=== PATIENT | female | born 1980 | race Caucasian/White ===

== ENCOUNTER 2022-01-10 18:46 | Emergency (ER) | payer OTHER, SELFPAY ==
--- NOTE | ~2022-01-10 | XR_ITS ---
EXAMINATION: XR chest 1V portable Exam Date/Time: 01/10/2022 19:25 CDT HISTORY: Overdose SOB Comparison: None available. RESULT: Lines, tubes, and devices: None. Lungs and pleura: Hyperexpansion. Subsegmental right lower lobe opacity discrete horizontal margin, which may represent diaphragmatic eventration chronic pleural scarring. Cardiomediastinal silhouette: Unremarkable. Other: No acute osseous or upper abdominal finding. 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 Formal PA and lateral views the chest be helpful for better differentiation. Emphysematous change. Reviewed, dictated and finalized at location K. 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 Formal PA and lateral views the chest be helpful for better differentiation. E mphysematous change.
[2022-01-10 18:54] VITALS: BP 93/59; PULSE 91; RESP 16; O2SAT 96
[2022-01-10 19:13] VITALS: RESP 18
[2022-01-10 19:20] VITALS: PULSE 91
[2022-01-10 19:21] VITALS: BP 117/72; PULSE 84; RESP 12; O2SAT 100
--- NOTE | 2022-01-10 19:27 | ED.OVERDOSE ---
HPI - Overdose General Chief Complaint: Overdose Stated Complaint: pt found unresponsive by son, landyaned Time Seen by Provider: 01/10/22 18:59 History of Present Illness HPI Narrative: Patient is a 41-year-old female who presents ER status post overdose. Patient reports it was unintentional. She uses drugs habitually. She reports she snorted some cocaine and then injected some fentanyl. She does this typically and did not use more fentanyl than she usually does. Her son found her with blue lips unresponsive. He then Narcan to her and carried her outside. Patient did have emesis while in the car. Patient has no complaints at this time. She is alert and oriented x3. She is accompanied by her younger son and her mother. Patient reports desire to get help but mother reports that each time she goes to rehab she checks out and then starts using again. Related Data Home Medications Medication Instructions Recorded Confirmed No Home Medications 01/10/22 01/10/22 Allergies Allergy/AdvReac Type Severity Reaction Status Date / Time No Known Allergies Allergy Unverified 01/10/22 19:19 Review of Systems Review of Systems: All systems reviewed & are unremarkable except as noted in HPI and below Constitutional: Constitutional: Denies chills, Denies fatigue and Denies fever(s) Respiratory: Respiratory: Denies cough, Denies dyspnea and Denies wheezing Gastrointestinal: Gastrointestinal: Denies abdominal pain, Denies nausea and Reports vomiting Neurologic: Denies focal weakness and Denies numbness PMFSH Past Medical History Medical History (Updated 01/10/22 @ 20:21 by Puma Simeon MD) Hepatitis C Surgical History Surgical History (Updated 01/10/22 @ 19:29 by Puma Simeon MD) No pertinent past surgical history Social History Social History (Updated 01/10/22 @ 19:29 by Puma Simeon MD) Substance use type: crack/cocaine and IV drugs Other substance usage details: fentanyl Exam Narrative: GENERAL: Disheveled-appearing, well-nourished, and in no acute distress. HEAD: Normocephalic, atraumatic. EYES: PERRL and EOMI. ENT: Mucous membranes moist. CHEST: Clear to auscultation. No respiratory distress. HEART: Regular rate and rhythm. Normal peripheral pulses. ABDOMEN: Soft, nontender, nondistended. EXTREMITIES: Normal range of motion. No edema. SKIN: Warm, dry. Multiple scars and tract barry to the upper and lower extremities. NEURO: Alert and oriented x3. PSYCH: Normal mood and affect. Course Course Emergency Course: Labs unremarkable, chest x-ray with elevated diaphragm but patient is demanding to leave. Vital stable and not hypoxic. Will discharge. Vital Signs Vital signs: Vital Signs Pulse Rate 91 01/10/22 18:54 Respiratory Rate 16 01/10/22 18:54 Blood Pressure 93/59 L 01/10/22 18:54 Pulse Oximetry 96 01/10/22 18:54 Oxygen Delivery Room Air 01/10/22 18:54 Pulse Rate 84 01/10/22 19:21 Respiratory Rate 12 01/10/22 19:21 Blood Pressure 117/72 01/10/22 19:21 Pulse Oximetry 100 01/10/22 19:21 Oxygen Delivery Room Air 01/10/22 18:54 MDM - Overdose Lab Data Result diagrams: 01/10/22 19:53 01/10/22 19:53 Labs: Lab Results 01/10/22 01/10/22 Range/Units 19:53 19:53 WBC 8.4 (4.5-10.0) K/mm3 RBC 3.79 L (4.2-5.4) M/mm3 Hgb 10.6 L (12.0-15.0) g/dL Hct 34.7 L (37.0-47.0) % MCV 91.6 (80-100) fl MCH 28.0 (26-34) pg MCHC 30.5 L (32-36) g/dl RDW 16.8 H (11.5-14.5) % Plt Count 189 (150-375) k/mm3 MPV 11.1 H (7.4-10.4) fl Immature Gran % (Auto) 0.2 (0-0.5) % Neut % (Auto) 41.3 L (45.5-73.1) % Lymph % (Auto) 49.1 H (18.3-44.2) % [place] % (Auto) 7.5 (2.6-8.5) % Eos % (Auto) 1.4 (0-4.4) % Baso % (Auto) 0.5 (0.2-1.2) % Lymph # (Auto) 4.14 H (0.9-3.2) K/mm3 [place] # (Auto) 0.6 (0.1-0.6) K/mm3 Eos # (Auto) 0.1 (0-0.3) K/mm3 Baso # (Aut
[2022-01-10] MEDS: SODIUM CHLORIDE 0.9% IV 1,000 ML 999 ML IV CONT (19:40)
[2022-01-10 19:58] LABS: Basophils Percent Auto 0.5 % (0.2-1.2); Eosinophils Absolute Auto 0.1 K/mm3 (0-0.3); Eosinophils Percent Auto 1.4 % (0-4.4); Hematocrit 34.7 % (37.0-47.0); Hemoglobin 10.6 g/dL (12.0-15.0); Immature Granulocyte Absolute 0.02 K/mm3 (0.00-0.031); Immature Granulocyte Percent A 0.2 % (0-0.5); Lymphocytes Absolute Auto 4.14 K/mm3 (0.9-3.2); Lymphocytes Percent Auto 49.1 % (18.3-44.2); Mean Corpuscular HGB Conc 30.5 g/dl (32-36); Mean Corpuscular Volume 91.6 fl (80-100); Mean Platelet Volume 11.1 fl (7.4-10.4); Monocytes Absolute Auto 0.6 K/mm3 (0.1-0.6); Monocytes Percent Auto 7.5 % (2.6-8.5); Neutrophils Absolute Auto 3.5 K/mm3 (1.3-6.7); Neutrophils Percent Auto 41.3 % (45.5-73.1); Platelet Count Result 189 k/mm3 (150-375); Red Blood Count 3.79 M/mm3 (4.2-5.4); Red Cell Distribution Width 16.8 % (11.5-14.5); White Blood Count 8.4 K/mm3 (4.5-10.0)
[2022-01-10 20:09] LABS: Anion Gap 6 mmol/L (8-16); Blood Urea Nitrogen 26 mg/dL (7-17); Calcium 8.5 mg/dL (8.4-10.2); Carbon Dioxide 29 mmol/L (22-30); Chloride 106 mmol/L (98-107); Estimated CRCL calculation 52 ml/min; Estimated Glomerular Filt Rate > 60; Glucose 82 mg/dL (65-110); Potassium 4.3 mmol/L (3.4-5.0); Sodium 141 mmol/L (137-145)
[2022-01-10 20:15] LABS: Platelet Estimate Adequate (Adequate)
[2022-01-10 20:16] LABS: Anisocytosis 1+ (NORMAL); Ovalocytes 1+ (NORMAL)
--- NOTE | 2022-01-10 20:44 | PC.NURSE ---
pt alert and oriented vitals stable. pt requesting to leave. erp in room discussed discharge with patient. pt requesting rehab information. pt given help line phone number. discharge instructions given to pt and pt mother at bedside.
== END 2022-01-10 20:46 | disposition home or self-care (01) ==
PROVIDERS: Emergency Provider Emergency Medicine
DX: T40.411A Poisoning by fentanyl or fentanyl analogs, accidental (unintentional), initial encounter (principal); T40.5X1A Poisoning by cocaine, accidental (unintentional), initial encounter; Z86.19 Personal history of other infectious and parasitic diseases
CPT/HCPCS: 36415; 71045; 80048; 85025; 96360; 99283; J7030